=== PATIENT | male | born 1945 | race Caucasian/White ===

== ENCOUNTER 2020-05-05 06:38 | Day surgery (SDC) | payer OTHER ==
[~2020-05-05] VITALS: Ht 172.7 cm; Wt 115.9 kg
[2020-05-05] MEDS ORDERED: FENOFIBRATE134 MG PO (07:18)
[2020-05-05] MEDS ORDERED: BAYER CHEWABLE81 MG PO (07:18)
[2020-05-05] MEDS ORDERED: LIPITOR40 MG PO (07:18)
[2020-05-05] MEDS ORDERED: LISINOPRIL40 MG PO (07:19)
[2020-05-05] MEDS ORDERED: TOPROL XL25 MG PO (07:19)
[2020-05-05 07:23] VITALS: BP 116/65; Ht 172.7 cm; Wt 115.9 kg
[2020-05-05 07:43] LABS: BASOPHILS 0.3 % (0-2); EOSINOPHILS 1.7 % (0-7); HEMATOCRIT 38.9 % (42.0-54.0); HEMOGLOBIN 13.5 g/dL (13.5-17.5); IMMATURE GRANULOCYTES 0.2 % (0-5); LYMPHOCYTE ABS# 1.99 10x3/uL (1.32-3.57); MCH 32.4 pg (26.0-34.0); MCHC 34.7 g/dL (31.0-37.0); MCV 93.3 fL (80.0-100.0); MEAN PLATELET VOLUME 9.5 fL (7.4-10.4); MONOCYTES 10.3 % (2-11); NEUTROPHIL ABS# 5.92 10x3/uL (1.78-5.38); NEUTROPHILS 65.5 % (40-80); PLATELET COUNT 279 10x3/uL (130-400); RBC 4.17 10x6/uL (4.20-6.10); RDW 13.1 % (11.5-14.5)
[2020-05-05 07:52] LABS: ANION GAP 17.8 mmol/L (8-16); CALCIUM 9.4 mg/dL (8.5-10.1); CARBON DIOXIDE 21.7 mmol/L (21.0-32.0); POTASSIUM - SERUM 4.5 mmol/L (3.5-5.1)
[2020-05-05 07:56] LABS: APTT 31.8 SECONDS (22.8-39.4); INR 1.24 (0.85-1.17); PROTIME 14.4 SECONDS (11.6-15.0)
--- NOTE | 2020-05-05 11:30 | HP ---
PATIENT: RYDER NELSON MEDICAL RECORD: [id number] ACCOUNT: [id number] LOCATION:[facility] : [id number] ADMISSION DATE: 05/05/20 PCP: No PCP HISTORY AND PHYSICAL EXAMINATION HISTORY OF PRESENT ILLNESS: The patient is here for colonoscopy. The patient had 1 of 3 cards that were positive for fecal occult blood. The patient has noted no rectal bleeding. He has had a colonoscopy a little over 10 years ago. No history of colon polyps. He has had no abdominal pain. The risks, possible complications, and alternatives of the procedure were explained to the patient. He elects to proceed. MEDICATIONS: At the custodial were reviewed. ALLERGIES: No known drug allergies. SOCIAL HISTORY: Nonsmoker. PAST MEDICAL AND SURGICAL HISTORY: Coronary stents, hypertension. PHYSICAL EXAMINATION: GENERAL: The patient does not appear acutely ill. He does appear chronically ill. VITAL SIGNS: Reviewed. EARS: External ears appear normal. EYES: Extraocular movements are intact. NECK: Trachea is midline. CHEST: No intercostal retractions. PULMONARY: Nonlabored. No stridor. IMPRESSION: Fecal occult blood positivity. PLAN: Colonoscopy. TRANSINT:[id number] Voice Confirmation ID: [id number] DOCUMENT ID: [id number] AARON RAMIRES MD at 1130 CC: MOOK PAINTER MD [id number] DICTATION DATE: 05/05/2048 PHARMACY ASSISTANT: 05/05/20 1018 REG [facility] [address] [place] [id number]
--- NOTE | 2020-05-05 11:30 | OP ---
PATIENT NAME: RYDER NELSON MEDICAL RECORD: [id number] :49 LOCATION:D.OPS ADMISSION DATE: SURGEON: DAVID RAMIRES MD DATE OF OPERATION: 05/05/2020 PREOPERATIVE DIAGNOSIS: Fecal occult blood positivity. POSTOPERATIVE DIAGNOSIS: Fecal occult blood positivity with no evidence of a bleeding source in the colon or rectum. PROCEDURE: Total colonoscopy to cecum. SURGEON: David Ramires MD ENVIRONMENTAL ENGINEERING ASSISTANT: None. BLOOD LOSS: Zero. ANESTHESIA: IV sedation. DESCRIPTION OF PROCEDURE: The patient was conveyed to the endoscopy suite electively on 05/05/2020. IV sedation was induced by the anesthesia staff. The patient was placed in the [place] position. A digital rectal examination was performed. A colonoscope was inserted through the anus. It was easily advanced to the cecum. The prep was fair. I slowly withdrew the endoscope. I irrigated and aspirated extensively. I dragged the folds. The pullback was greater than a 13-minute pullback. A combination of normal imaging and narrow band imaging was utilized. A retroflex view was obtained in the rectum. I then unretroflexed the scope and removed it under direct vision. I identified no bleeding source to account for the patient's fecal occult blood positivity. I would recommend that he return to have an off-site EGD to look for an upper tract bleeding source. TRANSINT:[id number] Voice Confirmation ID: [id number] DOCUMENT ID: [id number] DAVID RAMIRES MD at 1130 CC: MOOK PAINTER MD [id number] DICTATION DATE: 05/05/20 1026 [place] ELECTRICAL PERSON: 05/05/20 1039 REG [facility] [address] [place] [address]
--- NOTE | 2020-05-05 13:33 | NUR ---
1059 IV DC'ED WITH CATHETER INTACT. NO BLEEDING @ SITE. DRESSING. ADC GUARDS X'S 2 @ BEDSIDE. Chris ALICIA R.N.
--- NOTE | 2020-05-05 13:34 | NUR ---
1112 DRESSED. AWAKE & ALERT. PROVIDED WITH D/C INFORMATION INCLUDING: MED REC & [facility] POST ENDOSCOPICD/C INSTRUCTIONS. PT VOICED UNDERSTANDING. COPIES OF LAB, H&P, POST OP NOTE & PROCEDURE NOTE SENT WITH PT. FOR ADC RECORDS. TO ADC VAN PER WHEELCHAIR ACCOMPANIED BY 2 ADC GUARDS. Chris ALICIA R.N.
== END 2020-05-05 11:12 ==
LOC: D.OPS 06:38
PROVIDERS: Anesthesiology; ATTEND Surgery
DX: R19.5 Other fecal abnormalities (principal); I10 Essential (primary) hypertension; Z95.5 Presence of coronary angioplasty implant and graft